=== PATIENT | female | born 1990 | race Caucasian/White ===

== ENCOUNTER 2018-01-21 18:51 | Observation (INO) ==
[2018-01-21] MEDS ORDERED: LIDOCAINE HCL 2 % 10 ML JELLY URO-JECT TOPICAL PRN (20:24)
[2018-01-21] MEDS ORDERED: Magnesium Sulfate 4gm (Premix) 4 GM/100 ML BAG IV ONE (20:24)
[2018-01-21] MEDS ORDERED: ONDANSETRON 4 MG/2 ML VIAL IVP PRN (20:24)
[2018-01-21] MEDS ORDERED: CALCIUM GLUCONATE 100 MG/1 ML - 10 ML IVP PRN (20:24)
[2018-01-21] MEDS ORDERED: LIDOCAINE W/ SODIUM BICARB 0.5 ML SYR SUBD PRN (20:24)
[2018-01-21] MEDS ORDERED: Lactated Ringers 1,000 ML PRIMARY IV SCH (20:30)
--- NOTE | 2018-01-21 20:44 | OB.PROGRES ---
Date and Time of Service: 01/21/18 @ 1930 Interval History: Ms. Benitez is a 27 yo from [place], [place], at 23 2/7 weeks (ZAC 05/18/18) . Her has been complicated by some vaginal bleeding at 12 weeks (she had a 'hematoma' on her placenta per her report). She then had premature rupture of membranes at 16 4/7 weeks. She has been managed expectantly since PPROM. She had a consultation with Dr. Adrian Mcneil at [facility] in [place] about 10 days ago and had planned to travel to [place] at 24 weeks for further management. This morning, around 1000, she went to the restroom and noted that she had some light-tinged bleeding in the toilet. She called her physician in [place]. After her physician in [place] consulted with the MFM agronomy supervisor in [place], the pt was directed to drive down to [place] today. She feels that her bleeding has slowly increased throughout the day. She stopped in [place], [place] on her way here, and was evaluated on their L&D unit. Her cervix was closed at that time per sterile speculum exam. She had some blood tinged amniotic fluid in the posterior fornix. Bedside u/s there showed the baby to be in transverse presentation, anterior placenta. TALITA was 1.5. The pt was reassured and allowed to continue driving towards [place]. She reports that she stopped at a local truck stop for fuel and felt that she was having more bleeding so presented to our labor and delivery unit here. She reports feeling 'tightening' when she has a contraction, they last around 30 seconds per pt report. She is not having any cramping or more severe pain at this time. 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 She is otherwise healthy. Objective - Cervical Exam Cervical Exam: cervix is closed per sterile speculum exam. Tiny amount of blood noted to be coming from os. There is some pooling of blood in the posterior fornix. [place]: initially, no contractions noted. The toco was moved and then showed that the pt was ethan every 1-3 minutes, palpating mild. After the mag sulfate bolus, she is now ethan about once every 10 minutes. Heart Rate: 150s per doppler Assessment and Plan - Patient Problems (1) History of premature rupture of membranes (PPROM) Current Visit: Yes Status: Chronic Priority: High Code(s): Z87.59 - Personal history of other complications of , childbirth and the puerperium (2) Vaginal bleeding during Current Visit: Yes Status: Acute Priority: High Code(s): O46.90 - Antepartum hemorrhage, unspecified, unspecified trimester - Assessment / Plan Additional Assessment/Plan Details: -after pt presentation, I immediately called and arranged transfer of pt to [facility] in [place] after gracious acceptance per Dr. Stone. -contractions spaced out after IVF and mag sulfate bolus (6 gms) and maintenance of 3 gms/hour. -deferred antibiotics until she reaches [place] per Dr. Stone. 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 -pt stable upon departure from our labor and delivery unit.
[2018-01-21] MEDS: Magnesium Sulfate (Premix) 20 GM/500 ML BAG IV SCH ×2 (21:13→21:14)
[2018-01-22] MEDS ORDERED: Lactated Ringers-OB Dept 1,000 ML ONE (01:47)
[2018-01-22] MEDS ORDERED: Prenatal Multivitamin Tab 1 TAB TAB PO SCH (09:00)
== END 2018-01-21 22:00 ==
LOC: OBOP 18:51 → OBIP 18:51
PROVIDERS: ADMIT Family Medicine; ATTEND Family Medicine